=== PATIENT | male | born 1990 | race Two or more races ===

== ENCOUNTER 2020-10-13 14:53 | Emergency (ER) | payer SELFPAY ==
[2020-10-13] MEDS ORDERED: FLU VACC QS2020-21(6MOS UP)/PF 60 MCG/0.5 ML SYRINGE IM ONE (15:30)
--- NOTE | 2020-10-13 16:56 | EDM.PDOC ---
ED HPI GENERAL MEDICAL PROBLEM - General Chief Complaint: Respiratory Problem Stated Complaint: COVID SYMPTOMS Time Seen by Provider: 10/13/20 15:24 Source of Information: Reports: Patient History Limitations: Reports: No Limitations - History of Present Illness INITIAL COMMENTS - FREE TEXT/NARRATIVE: The patient presents with fever, chills, cough, chest pain and shortness of b reath. This has been going on for about 2 weeks but he developed some chest pain today. He also lost his sense of smell and taste. He may have been around people at work with COVID 19. He has no abdominal pain, nausea or vomiting. He does not smoke. He has a sore throat. He does not have a history of asthma or COPD. Onset: Gradual Duration: Week(s): Location: Reports: Chest Quality: Reports: Sharp Severity: Moderate Improves with: Reports: None Worsens with: Reports: None Associated Symptoms: Reports: Chest Pain, Cough, Fever/Chills, Nausea/Vomiting, Shortness of Breath Generalized Pain Score (Numeric/FACES): 8 - Related Data Allergies Allergy/AdvReac Type Severity Reaction Status Date / Time No Known Allergies Allergy Verified 10/13/20 15:14 Home Meds: Home Meds Albuterol [Proventil HFA] 2 puff INH Q4H PRN #1 inhaler 10/13/20 [Rx] Azithromycin [Zithromax] 250 mg PO DAILY #6 tab 10/13/20 [Rx] Past Medical History Respiratory History: Reports: Pneumonia, Recurrent Musculoskeletal History: Reports: Fracture, Other (See Below) Other Musculoskeletal History: broke middle finger - Infectious Disease History Infectious Disease History: Reports: Chicken Pox Social & Family History - Family History Family Medical History: No Pertinent Family History - Tobacco Use Tobacco Use Status *Q: Never Tobacco User Second Hand Smoke Exposure: Yes - Caffeine Use Caffeine Use: Reports: Soda Caffeine Use Comment: occasionally - Alcohol Use Date of Last Drink: 07/23/20 - Recreational Drug Use Recreational Drug Use: No ED ROS GENERAL - Review of Systems Review Of Systems: See Below Constitutional: Reports: Fever, Chills HEENT: Reports: No Symptoms Respiratory: Reports: Shortness of Breath, Cough Cardiovascular: Reports: Chest Pain Endocrine: Reports: No Symptoms GI/Abdominal: Reports: No Symptoms : Reports: No Symptoms Musculoskeletal: Reports: No Symptoms ED EXAM, GENERAL - Physical Exam Exam: See Below Exam Limited By: No Limitations General Appearance: Alert, No Apparent Distress Ears: Normal External Exam Nose: Normal Inspection Head: Atraumatic, Normocephalic Neck: Normal Inspection Respiratory/Chest: No Respiratory Distress, Lungs Clear, Normal Breath Sounds Cardiovascular: Regular Rate, Rhythm, No Edema, No Murmur GI/Abdominal: Soft, Non-Tender, No Organomegaly, No Mass Back Exam: Normal Inspection Extremities: Normal Inspection #1 Interpretation EKG Date: 10/13/20 Time: 15:57 Rhythm: NSR Rate (Beats/Min): 78 [place]: Normal P-Wave: Present QRS: Normal ST-T: Elevated (Early repole) QT: Normal Course - Vital Signs Last Recorded V/S: Last Vital Signs Temp 98 F 10/13/20 15:08 Pulse 100 10/13/20 17:17 Resp 20 10/13/20 17:17 BP 144/82 H 10/13/20 17:17 Pulse Ox 100 10/13/20 17:17 - Orders/Labs/Meds Orders: Active Orders 24 hr Category Date Time Status Cardiac Monitoring [RC] . DIRECTED Care 10/13/20 15:32 Active EKG Documentation Completion [RC] STAT Care 10/13/20 15:33 Active Influenza Vaccine Charge [RC] .DISCHARGE Care 10/13/20 15:27 Active Chest 1V Frontal [CR] Stat Exams 10/13/20 15:33 Taken Labs: Laboratory Tests 10/13/20 10/13/20 10/13/20 Range/Units 15:45 15:45 16:16 WBC 8.07 (4.23-9.07) K/mm3 RBC 6.18 H (4.63-6.08) M/mm3 Hgb 14.0 (13.7-17.5) gm/dl Hct 44.4 (40.1-51.0) % MCV 71.8 L (79.0-92.2) fl MCH 22.7 L (25.7-32.2) pg MCHC 31.5 L (32.2-35.5) g/dl RDW Std Deviation 38.3 (35.1-43.9) fL Plt Count 337 (163-337) K/mm3 MPV 10.4 (9.4-12.3) fl Neut % (Auto) 61.3 (34.0-67.9) % Lymph % (Auto) 25.7 (21.8-53.1) % [place] % (Auto) 10.7 (5.3-12.2) % Eos % (Auto) 1.5 (0.8-7.0) Baso % (Auto) 0.6 (0.1-1.2) % Neut # (Auto) 4.95 (1.78-5.38) K/mm3 Lymph # (Auto) 2.07 (1.32-3.57) K/mm3 [place] # (Auto) 0.86 H (0.30-0.82) K/mm3 Eos # (Auto) 0.12 (0.04-0.54) K/mm3 Baso # (Auto) 0.05 (0.01-0.08) K/mm3 Manual Slide Review Abnormal smear Sodium 140 (136-145) mEq/L Potassium 4.5 (3.5-5.1) mEq/L Chloride 102 (98-107) mEq/L Carbon Dioxide 28 (21-32) mEq/L Anion Gap 14.5 (5-15) BUN 14 (7-18) mg/dL Creatinine 1.0 (0.7-1.3) mg/dL Est Cr Clr Drug Dosing 103.55 mL/min Estimated GFR (MDRD) > 60 (>60) mL/min BUN/Creatinine Ratio 14.0 (14-18) Glucose 102 (74-106) mg/dL Calcium 9.3 (8.5-10.1) mg/dL Total Bilirubin 0.2 (0.2-1.0) mg/dL AST 26 (15-37) U/L ALT 58 (16-63) U/L Alkaline Phosphatase 120 H (46-116) U/L Troponin I < 0.017 (0.00-0.056) ng/mL Total Protein 8.2 (6.4-8.2) g/dl Albumin 4.3 (3.4-5.0) g/dl Globulin 3.9 gm/dL Albumin/Globulin Ratio 1.1 (1-2) Influenza Type A RNA Negative (NEGATIVE) Influenza Type B RNA Negative (NEGATIVE) SARS-CoV-2 RNA ([facility]SA) Negative (NEGATIVE) Meds: Medications Discontinued Medications Generic Name Dose Route Start Last Admin Trade Name Freq PRN Reason Stop Dose Admin Influenza Virus Vaccine 1 each 10/13/20 15:27 Pharmacy To Dose - Influenza Vaccine IM 10/13/20 15:28 ONETIME ONE Influenza Virus Vaccine 60 mcg 10/13/20 15:30 10/13/20 16:10 Fluzone Quad [id number] Syringe IM 10/13/20 15:31 60 mcg .ONCE ONE Administration - Re-Assessments/Exams Free Text/Narrative Re-Assessment/Exam: 10/13/20 16:54 I ordered an EKG, CXR, labs and COVID 19. His EKG shows a NSR with no acute changes. His CXR looks good. 10/13/20 16:56 His CBC and CMP look good. His troponin is negative. 10/13/20 18:03 His COVID 19 and influenza were both negative. I feel he has some bronchitis. I will get him on some zithromax and albuterol. Departure - Departure Time of Disposition: 18:05 Disposition: Home, Self-Care 01 Condition: Good Clinical Impression: Bronchitis - Discharge Information *PRESCRIPTION DRUG MONITORING PROGRAM REVIEWED*: Not Applicable *COPY OF PRESCRIPTION DRUG MONITORING REPORT IN PATIENT [place]: Not Applicable Prescriptions: Albuterol [Proventil HFA] 2 puff INH Q4H PRN #1 inhaler PRN Reason: Shortness Of Breath Azithromycin [Zithromax] 250 mg PO DAILY #6 tab Referrals: PCP,None [Primary Care Provider] - Pat Mendoza MD [Physician] - 1 Week Forms: ED Department Discharge Additional Instructions: Take the zithromax 2 pills on day 1 and 1 pill on day 2 through 5. Use the albuterol inhaler 2 puffs every 6 hours as needed for shortness of breath. Take tylenol or motrin as needed for pain and fever. Please return if you are worse. Sepsis Event Note (ED) - Evaluation Sepsis Screening Result: No Definite Risk - Focused Exam Vital Signs: Vital Signs Temp Pulse Resp BP Pulse Ox 10/13/20 17:17 100 20 144/82 H 100 10/13/20 15:08 98 F 85 20 148/91 H 98 - My Orders Last 24 Hours: My Active Orders 10/13/20 15:27 Influenza Vaccine Charge [RC] .DISCHARGE 10/13/20 15:32 Cardiac Monitoring [RC] . DIRECTED 10/13/20 15:33 EKG Documentation Completion [RC] STAT Chest 1V Frontal [CR] Stat - Assessment/Plan Last 24 Hours: My Active Orders 10/13/20 15:27 Influenza Vaccine Charge [RC] .DISCHARGE 10/13/20 15:32 Cardiac Monitoring [RC] . DIRECTED 10/13/20 15:33 EKG Documentation Completion [RC] STAT Chest 1V Frontal [CR] Stat
[2020-10-13 17:53] LABS: CORONAVIRUS COVID-19 NAA NEGATIVE (NEGATIVE)
--- NOTE | 2020-10-14 11:21 | CR ---
Chest: Portable view of the chest was obtained. Comparison: No previous chest imaging is available. Heart size and mediastinum are normal. Lungs are clear with no acute parenchymal change. Bony structures are grossly intact. Impression: 1. Nothing acute is appreciated on portable chest x-ray. Diagnostic code #1
== END 2020-10-13 18:22 | disposition home or self-care (01) ==
LOC: JD.ED 14:53
DX: J40 Bronchitis, not specified as acute or chronic (principal); Z20.822 Contact with and (suspected) exposure to COVID-19; Z77.22 Contact with and (suspected) exposure to environmental tobacco smoke (acute) (chronic)
CPT/HCPCS: 0240U; 36415; 71045; 80053; 84484; 85025; 90471; 90686; 93005; 99285; 93010; 99283; G0008

== ENCOUNTER 2025-02-04 09:41 | Emergency (ER) | payer BC, MEDICAID ==
[2025-02-04] MEDS: Ketorolac 60 MG/2 ML SDV IM ONE (11:38)
== END 2025-02-04 12:46 | disposition home or self-care (01) ==
LOC: JD.ED 09:41
DX: S99.921A Unspecified injury of right foot, initial encounter (principal); Z79.899 Other long term (current) drug therapy; X50.9XXA Other and unspecified overexertion or strenuous movements or postures, initial encounter
CPT/HCPCS: 29515; 73630; 96372; 99283; J1885

== ENCOUNTER 2025-06-09 08:43 | Emergency (ER) | payer MEDICAID ==
[2025-06-09] MEDS: Fluorescein 1 MG Ophth Strip EYELF ONE (09:24)
== END 2025-06-09 09:50 | disposition home or self-care (01) ==
LOC: JD.ED 08:43
DX: S05.02XA Injury of conjunctiva and corneal abrasion without foreign body, left eye, initial encounter (principal); Z79.899 Other long term (current) drug therapy; X58.XXXA Exposure to other specified factors, initial encounter; Y93.89 Activity, other specified
CPT/HCPCS: 99283; J3490

== ENCOUNTER 2025-06-21 13:40 | Emergency (ER) | payer MEDICAID | END 2025-06-21 14:51 | disposition home or self-care (01) | LOC: JD.ED 13:40 | DX: H10.13 Acute atopic conjunctivitis, bilateral (principal) | CPT/HCPCS: 99283; J8540 ==

== ENCOUNTER 2025-08-20 20:40 | Emergency (ER) | payer MEDICAID | END 2025-08-20 21:35 | disposition home or self-care (01) | LOC: JD.ED 20:40 | DX: T24.501A Corrosion of first degree of unspecified site of right lower limb, except ankle and foot, initial encounter (principal); T24.502A Corrosion of first degree of unspecified site of left lower limb, except ankle and foot, initial encounter; X19.XXXA Contact with other heat and hot substances, initial encounter | CPT/HCPCS: 99282; 99283 ==